=== PATIENT | female | born 1965 | race Caucasian/White ===

== ENCOUNTER 2016-12-02 10:15 | Outpatient (RCR) | payer OTHER ==
[~2016-12-02 10:15] MED LIST: /WARF5TA OR; ACET-654 PO; ACET500C OR; ADVI200T PO; ASPI325T PO; ATEN50TA2 OR; BAYE325T12 PO; DOCU10CA PO; ENOX40SY SC; IBUP80TA PO; LIPI20TA PO; Lioresal PO; MAGN250T OR; MAGN500T PO; MAGNESIUM OTC; MAGNESIUM OTC PO; MILKSUS PO; MULTIVIT; NICO14DI3 TD; NICO21DI4 TD; OXYB5TAB5 OR; POTA75TA OR; PROTPAK PO; SENO8.6T2 PO; TYLE650T30 PO; WARF1TAB OR
== END 2016-12-14 ==
LOC: M OT 10:15
PROVIDERS: ATTEND Psychiatry & Neurology Neurology
DX: Z51.89 Encounter for other specified aftercare (principal); G81.12 Spastic hemiplegia affecting left dominant side

== ENCOUNTER → 2017-11-29 | Outpatient (CLI) | payer MEDICARE, MEDICAID | LOC: M RAD 12:32 | DX: I67.1 Cerebral aneurysm, nonruptured (principal) | CPT/HCPCS: 70544 ==

== ENCOUNTER → 2017-12-08 | Outpatient (CLI) | payer MEDICARE, MEDICAID ==
[~2017-12-08] MED LIST changes: -/WARF5TA OR; -ACET-654 PO; -ACET500C OR; -ADVI200T PO; -ASPI325T PO; -ATEN50TA2 OR; -BAYE325T12 PO; -DOCU10CA PO; +E-Z-GAS II EFFERVESCENT PACKET (SODIUM BICARB./CITRIC ACID/SIMETHICONE) As Ordered; +E-Z-HD 98% w/w 340GM SUSP BTL As Ordered; +E-Z-PAQUE 96% w/w SUSP 176GM BTL As Ordered; -ENOX40SY SC; -IBUP80TA PO; -LIPI20TA PO; -Lioresal PO; -MAGN250T OR; -MAGN500T PO; -MAGNESIUM OTC; -MAGNESIUM OTC PO; -MILKSUS PO; -MULTIVIT; -NICO14DI3 TD; -NICO21DI4 TD; -OXYB5TAB5 OR; -POTA75TA OR; -PROTPAK PO; -SENO8.6T2 PO; -TYLE650T30 PO; +VARIBAR NECTAR 40% w/v 240ML SUSP BTL As Ordered; +VARIBAR PUDDING 40% w/v 230ML TUBE As Ordered; -WARF1TAB OR
== END ==
LOC: M RAD 10:11
DX: R13.10 Dysphagia, unspecified (principal)
CPT/HCPCS: 74230

== ENCOUNTER → 2018-01-10 | Outpatient (CLI) | payer MEDICARE, MEDICAID | LOC: M RAD 13:45 | DX: Z12.31 Encounter for screening mammogram for malignant neoplasm of breast (principal) | CPT/HCPCS: 77067 ==

== ENCOUNTER 2018-02-08 12:15 | Outpatient (RCR) | payer MEDICARE, MEDICAID | END 2018-02-11 | LOC: M PT 12:15 | DX: Z51.89 Encounter for other specified aftercare (principal); M25.512 Pain in left shoulder | CPT/HCPCS: 97140 ==

== ENCOUNTER 2018-02-14 13:54 | Outpatient (RCR) | payer MEDICARE, MEDICAID | END 2018-03-13 | LOC: M PT 13:54 | DX: Z51.89 Encounter for other specified aftercare (principal); M25.512 Pain in left shoulder | CPT/HCPCS: 97110 ==

== ENCOUNTER → 2019-01-29 | Outpatient (CLI) | payer MEDICARE, MEDICAID ==
[~2019-01-29] MED LIST changes: +/WARF5TA OR; +ACET1TAB55 PO; +ACET500C OR; +ADVI200T PO; +ASPI325T PO; +ATEN50TA2 OR; +BAYE325T12 PO; +DOCU10CA PO; -E-Z-GAS II EFFERVESCENT PACKET (SODIUM BICARB./CITRIC ACID/SIMETHICONE) As Ordered; -E-Z-HD 98% w/w 340GM SUSP BTL As Ordered; -E-Z-PAQUE 96% w/w SUSP 176GM BTL As Ordered; +ENOX40SY SC; +IBUP80TA PO; +LIPI20TA PO; +Lioresal PO; +MAGN250T OR; +MAGN500T PO; +MAGNESIUM OTC; +MAGNESIUM OTC PO; +MILK120011 PO; +MULTIVIT; +NICO14DI3 TD; +NICO21DI4 TD; +OXYB5TAB5 OR; +POTA75TA OR; +PROTPAK PO; +SENO8.6T5 PO; +TYLE650T30 PO; -VARIBAR NECTAR 40% w/v 240ML SUSP BTL As Ordered; -VARIBAR PUDDING 40% w/v 230ML TUBE As Ordered; +WARF1TAB OR
--- NOTE | 2019-01-29 15:10 | REP ---
MRA BRAIN WITHOUT CONTRAST: HISTORY: Left carotid aneurysm. 3D [id number] MR angiography was performed at the level of the [place]. COMPARISON: 11/29/2017 An aneurysm is present arising from the left internal carotid artery at the origin of the left posterior communicating artery. The aneurysm measures 4.5 x 6.2 mm and is unchanged in size compared to the previous study. The aneurysm projects lateral from the left internal carotid artery. There is no other aneurysm or arteriovenous malformation. There is loss of the normal hyperintense signal in the distal cervical and horizontal petrous segments of the right internal carotid artery. There is reconstitution of hyperintense signal in the vertical petrous segment of the right internal carotid artery. There is loss of the normal hyperintense signal in branches of the right middle cerebral artery secondary to a previous right temporoparietal lobe infarction. The remaining major intracranial vessels are patent. The left vertebral artery is dominant. IMPRESSION: 1. 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 2. Atherosclerotic disease, as described above. Electronically Signed by Cem Rodriguez MD 01/29/2019 03:13 P
== END ==
LOC: M RAD 13:15
PROVIDERS: ATTEND Neurological Surgery
DX: I67.1 Cerebral aneurysm, nonruptured (principal)

== ENCOUNTER → 2019-02-21 | Outpatient (REF) | payer MEDICARE, MEDICAID ==
[~2019-02-21] MED LIST changes: -/WARF5TA OR; +ASPI-1 PO; -ASPI325T PO; +COUM1TAB17 OR; -ENOX40SY SC; +LOVE1INJ SC
[2019-02-21 17:53] LABS: ALBUMIN 3.7 GM/DL (3.2-5.2); ALT/SGPT 26 U/L (12-78); BILIRUBIN,TOTAL 0.3 MG/DL (0.2-1.0); BLOOD UREA NITROGEN 7 MG/DL (7-18); CALCIUM LEVEL 9.7 MG/DL (8.5-10.1); CARBON DIOXIDE LEVEL 28 MEQ/L (21-32); CHLORIDE LEVEL 108 MEQ/L (98-107); CREATININE FOR GFR 0.78 MG/DL (0.55-1.30); GLOMERULAR FILTRATION RATE > 60.0 (>51); GLUCOSE, FASTING 132 MG/DL (70-100); SODIUM LEVEL 142 MEQ/L (136-145); TOTAL PROTEIN 7.3 GM/DL (6.4-8.2)
[2019-02-21 17:55] LABS: BASO % 0.4 % (0.0-1.0); EOS # 0.3 10^3/uL (0.0-0.50); EOS % 4.3 % (0.0-3.0); HEMATOCRIT 42.9 % (36.0-47.0); HEMOGLOBIN 13.3 g/dl (12.0-15.5); LYMPH # 3.7 10^3/uL (1.5-4.5); LYMPH % 50.3 % (24.0-44.0); MEAN CORPUSCULAR HEMOGLOBIN 27.4 pg (27.0-33.0); MEAN CORPUSCULAR VOLUME 88.3 fl (80.0-96.0); MONO # 0.5 10^3/uL (0.0-0.8); MONO % 7.3 % (0.0-5.0); NEUTROPHILS # 2.8 10^3/uL (1.8-7.7); NEUTROPHILS % 37.3 % (36.0-66.0); PLATELET COUNT, AUTOMATED 274 10^3/uL (150-450); RED BLOOD COUNT 4.86 10^6/uL (4.00-5.40); WHITE BLOOD COUNT 7.4 10^3/uL (4.0-10.0)
[2019-02-21 18:01] LABS: TOTAL 25(OH) VITAMIN D 40.2 NG/ML (30.0-100.0); VITAMIN B12 LEVEL 578 PG/ML
[2019-02-21 18:02] LABS: FOLATE > 24.0 NG/ML
== END ==
LOC: M LABNEURO 13:09
PROVIDERS: ATTEND Psychiatry & Neurology Neurology
DX: E53.8 Deficiency of other specified B group vitamins (principal); E55.9 Vitamin D deficiency, unspecified; G40.909 Epilepsy, unspecified, not intractable, without status epilepticus; I63.9 Cerebral infarction, unspecified

== ENCOUNTER → 2019-12-03 | Outpatient (REF) | payer MEDICARE, MEDICAID ==
[2019-12-03 13:43] LABS: BASO % 0.6 % (0.0-1.0); EOS # 0.2 10^3/uL (0.0-0.5); EOS % 2.3 % (0.0-3.0); HEMATOCRIT 44.3 % (36.0-47.0); HEMOGLOBIN 13.1 g/dl (12.0-15.5); LYMPH # 2.1 10^3/uL (1.5-5.0); LYMPH % 31.9 % (24.0-44.0); MEAN CORPUSCULAR HEMOGLOBIN 24.7 pg (27.0-33.0); MEAN CORPUSCULAR HGB CONC 29.6 g/dl (32.0-36.5); MEAN CORPUSCULAR VOLUME 83.6 fl (80.0-96.0); MONO # 0.5 10^3/uL (0.0-0.8); MONO % 8.3 % (0.0-5.0); NEUTROPHILS # 3.7 10^3/uL (1.5-8.5); NEUTROPHILS % 56.7 % (36.0-66.0); PLATELET COUNT, AUTOMATED 308 10^3/uL (150-450); WHITE BLOOD COUNT 6.5 10^3/uL (4.0-10.0)
[2019-12-03 13:54] LABS: ALBUMIN 3.9 GM/DL (3.2-5.2); ALT/SGPT 30 U/L (12-78); BILIRUBIN,TOTAL 0.4 MG/DL (0.2-1.0); BLOOD UREA NITROGEN 6 MG/DL (7-18); CALCIUM LEVEL 9.6 MG/DL (8.5-10.1); CARBON DIOXIDE LEVEL 29 MEQ/L (21-32); CHLORIDE LEVEL 103 MEQ/L (98-107); CREATININE FOR GFR 0.76 MG/DL (0.55-1.30); GLOMERULAR FILTRATION RATE > 60.0 (>51); GLUCOSE, FASTING 367 MG/DL (70-100); POTASSIUM SERUM 3.9 MEQ/L (3.5-5.1); SODIUM LEVEL 137 MEQ/L (136-145); TOTAL PROTEIN 7.7 GM/DL (6.4-8.2)
[2019-12-03 14:00] LABS: TOTAL 25(OH) VITAMIN D 18.2 NG/ML (30.0-100.0); VITAMIN B12 LEVEL 757 PG/ML
== END ==
LOC: M LABNEURO 12:52
PROVIDERS: ATTEND Psychiatry & Neurology Neurology
DX: G40.909 Epilepsy, unspecified, not intractable, without status epilepticus (principal)

== ENCOUNTER → 2020-01-15 | Outpatient (CLI) | payer MEDICARE, MEDICAID ==
--- NOTE | 2020-01-15 12:18 | REPVR ---
PROCEDURE INFORMATION: Exam: MR Angiogram Head Without Contrast, Arteries Exam date and time: 01/15/2020 11:06 AM Age: 54 years old Clinical indication: Condition or disease; Aneurysm, cerebral; Patient HX: F/u study to moniter known aneurysm; Additional info: Cerebral aneursym TECHNIQUE: Imaging protocol: MR angiogram head without contrast. Exam focused on the arteries. COMPARISON: MRA BRAIN W/O CONTRAST 01/29/2019 2:08 PM FINDINGS: Right internal carotid artery: There is stable occlusion of the right petrous and proximal cavernous segments of the internal carotid artery with minimal recanalization at the level of the distal cavernous and clinoid segments. Right anterior cerebral artery: Unremarkable. No occlusion or significant stenosis. No aneurysm. Right middle cerebral artery: There is mild stenosis of the right middle cerebral artery M1 segment. No aneurysm. Right posterior cerebral artery: Unremarkable. No occlusion or significant stenosis. No aneurysm. Right vertebral artery: Unremarkable. No occlusion or significant stenosis. No aneurysm. Left internal carotid artery: Unremarkable. Intracranial segment is patent with no significant stenosis. No aneurysm. Left anterior cerebral artery: Unremarkable. No occlusion or significant stenosis. No aneurysm. Left middle cerebral artery: Unremarkable. No occlusion or significant stenosis. No aneurysm. Left posterior cerebral artery: Unremarkable. No occlusion or significant stenosis. No aneurysm. Posterior communicating artery: There is a 4.3 x 6.0 cm left posterior communicating artery aneurysm. Left vertebral artery: Unremarkable. No occlusion or significant stenosis. No aneurysm. Basilar artery: Unremarkable. No occlusion or significant stenosis. No aneurysm. IMPRESSION: 1. Stable left posterior communicating artery aneurysm. 2. Stable occlusion of the right internal carotid artery. Electronically signed by: Britni Schaffer On 01/15/2020 12:17:47 PM
== END ==
LOC: M RAD 11:02
PROVIDERS: ATTEND Neurological Surgery
DX: I67.1 Cerebral aneurysm, nonruptured (principal)

== ENCOUNTER → 2020-02-27 | Outpatient (CLI) | payer MEDICARE, MEDICAID ==
--- NOTE | 2020-02-27 12:00 | REP ---
REASON: Status post CVA. I have no priors for comparison. Ultrasonographic evaluation of the right parotid artery shows complete lack of flow in any interrogated portion including both internal and external carotid arteries which were not definitely visualized. No velocities or waveforms could be obtained by interrogating the right carotid artery. LEFT CCA Systolic 156.0 cm/s CCA Diastolic 49.1 cm/s ICA Systolic 248.7 cm/s ICA Diastolic 74.0 cm/s ICA/CCA Ratio 1.59 Analysis of the spectral waveforms shows antegrade flow in the left vertebral artery, but poor visualization of flow in the right vertebral artery. In addition, there is evidence of left internal carotid arterial spectral broadening. IMPRESSION: 1. There are no priors for comparison. 2. Complete occlusion of the right carotid artery as described above. 3. According to the NASCET consensus criteria there is a greater than 70% flow significant stenosis in the left internal carotid artery. In addition, abnormal findings involving the right vertebral artery. 4. MRA of the carotid arterial system is recommended. Electronically Signed by Jerson Freed DO 02/27/2020 12:45 P
--- NOTE | 2020-02-27 12:08 | REP ---
REASON: Peripheral vascular disease. ON THE RIGHT: The ankle brachial index is 0.77. [employer] COMPUTING CONSULTANT 94.3 cm/s Biphasic Profunda 66.5 cm/s Monophasic SFA proximal 75.7 cm/s Biphasic SFA mid portion 65.3 cm/s Biphasic SFA distal 45.9 cm/s Biphasic Popliteal artery 45.1 cm/s Biphasic Anterior tibial artery proximally 42.6 cm/s Biphasic Tibioperoneal trunk 39.6 cm/s Monophasic Posterior tibia artery proximally 41.9 cm/s Monophasic Posterior tibial artery distally 30.8 cm/s Monophasic Anterior tibial artery distally 33.2 cm/s Biphasic Plaque was seen throughout all imaged arteries. Electronically Signed by Jerson Freed DO 02/27/2020 12:45 P
== END ==
LOC: M RAD 09:59
PROVIDERS: ATTEND Surgery Vascular Surgery
DX: I65.23 Occlusion and stenosis of bilateral carotid arteries (principal); Z95.820 Peripheral vascular angioplasty status with implants and grafts; I73.9 Peripheral vascular disease, unspecified

== ENCOUNTER → 2020-09-29 | Outpatient (CLI) | payer MEDICARE, MEDICAID ==
--- NOTE | 2020-09-29 15:58 | REP ---
INDICATION: Assess stenosis COMPARISON: None TECHNIQUE: Carotid ultrasonography was performed bilaterally FINDINGS: Right: CCA systolic: Occluded CCA diastolic: Occluded ICA systolic: Occluded ICA diastolic: Occluded ICA CCA ratio: NA LEFT: CCA systolic: 117 CENTIMETERS/SECONDS CCA diastolic: 25.8 CENTIMETERS/SECOND ICA systolic: 172.1 CENTIMETERS/SECOND ICA diastolic: 54.6 CENTIMETERS/SECONDS ICA CCA ratio: 1.47 Vertebral artery: Right: ABOVE AND BELOW BASELINE left: ANTEGRADE IMPRESSION: There is total occlusion of the interrogated right carotid artery. According to the SRU criteria there is 50-69% stenosis of the left internal carotid artery. There is evidence of a developing subclavian steal syndrome on the right. <Electronically signed by Jerson Freed > 09/29/20 [id number]
--- NOTE | 2020-09-29 16:26 | REP ---
INDICATION: PER VASC ANGIOPLASTY STATUS W/IMPLANTS . COMPARISON: 02/27/2020. TECHNIQUE: Real time jo scale and Duplex Doppler evaluation of the right lower extremity arterial vasculature using linear high frequency transducer. FINDINGS: The ankle to brachial index of the right lower extremity is 0.7. Duplex Doppler evaluation demonstrates diffuse monophasic waveforms throughout the right lower extremity arterial structures. Moderate diffuse plaquing is noted. No focal stenosis or occlusion is seen. PSV(cm/sec) Common femoral artery: 78 cm/s Profunda femoris artery: 63 cm/s Proximal superficial femoral artery: 82 cm/s Mid superficial femoral artery: 104 cm/s Distal superficial femoral artery: 90 cm/s Popliteal artery: 49 cm/s Proximal LEROY: 53 cm/s Tibioperoneal trunk: 72 cm/s Proximal BARGE LOADER: 44 cm/s Distal BARGE LOADER: 61 cm/s Distal LEROY: 40 cm/s IMPRESSION: No Duplex Doppler sonographic evidence of hemodynamically significant stenosis of the right lower extremity arterial system. Moderate diffuse plaquing. Diffuse monophasic waveforms. <Electronically signed by Gee Jo > 09/29/20 [id number]
== END ==
LOC: M RAD 14:25
PROVIDERS: ATTEND Surgery Vascular Surgery
DX: I65.23 Occlusion and stenosis of bilateral carotid arteries (principal); Z95.820 Peripheral vascular angioplasty status with implants and grafts; R09.89 Other specified symptoms and signs involving the circulatory and respiratory systems

== ENCOUNTER → 2021-01-19 | Outpatient (CLI) | payer MEDICARE, MEDICAID ==
--- NOTE | 2021-01-19 14:13 | REP ---
INDICATION: F/U CEREBRAL ANEURYSM. COMPARISON: Comparison MRI angiography of the brain January 15, 2020 and November 29, 2017.. TECHNIQUE: 3-D [id number] MR angiography of the brain is acquired in the usual fashion and maximal intensity projection images were generated in rotational format about the vertical and horizontal axes. In addition, source axial T1-weighted images are viewed in cine mode. FINDINGS: The right distal vertebral artery is smaller than the left. This is unchanged. Basilar artery is widely patent. Posterior cerebral and superior cerebellar vessels are unremarkable. Again noted is absence of flow signal in the right distal internal carotid artery consistent with a right ICA occlusion. There is reconstitution of the cavernous segment although this is small. Anterior communicator is patent. Posterior communicator appears patent on the right. On the left, there is a stable 6 mm issa aneurysm arising from the posterior communicating artery unchanged from multiple prior studies. Anterior cerebral and middle cerebral arteries remain intact and unremarkable. There is a large old area of encephalomalacia in the distribution of the right middle cerebral artery consistent with an old infarction. No evidence of new issa aneurysm or arteriovenous malformation. IMPRESSION: 6 mm left posterior communicating artery aneurysm is again seen unchanged. 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 <Electronically signed by Mau Butler > 01/19/21 [id number]
== END ==
LOC: M RAD 12:26
PROVIDERS: ATTEND Neurological Surgery
DX: I63.9 Cerebral infarction, unspecified (principal)

== ENCOUNTER → 2021-04-07 | Outpatient (CLI) | payer MEDICARE, MEDICAID ==
[2021-04-07 14:30] LABS: BASO % 0.6 % (0.0-1.0); EOS # 0.2 10^3/uL (0.0-0.5); EOS % 2.5 % (0.0-3.0); HEMATOCRIT 37.5 % (36.0-47.0); HEMOGLOBIN 10.7 g/dl (12.0-15.5); LYMPH # 3.2 10^3/uL (1.5-5.0); LYMPH % 47.2 % (24.0-44.0); MEAN CORPUSCULAR HEMOGLOBIN 21.1 pg (27.0-33.0); MEAN CORPUSCULAR HGB CONC 28.5 g/dl (32.0-36.5); MEAN CORPUSCULAR VOLUME 74.1 fl (80.0-96.0); MONO # 0.5 10^3/uL (0.0-0.8); MONO % 7.9 % (2.0-8.0); NEUTROPHILS # 2.8 10^3/uL (1.5-8.5); NEUTROPHILS % 41.5 % (36.0-66.0); PLATELET COUNT, AUTOMATED 338 10^3/uL (150-450); RED BLOOD COUNT 5.06 10^6/uL (4.00-5.40); WHITE BLOOD COUNT 6.8 10^3/uL (4.0-10.0)
[2021-04-07 15:15] LABS: ALBUMIN 3.3 GM/DL (3.2-5.2); ALT/SGPT 18 U/L (12-78); BILIRUBIN,TOTAL 0.3 MG/DL (0.2-1.0); BLOOD UREA NITROGEN 6 MG/DL (7-18); CALCIUM LEVEL 9.8 MG/DL (8.5-10.1); CARBON DIOXIDE LEVEL 29 MEQ/L (21-32); CHLORIDE LEVEL 106 MEQ/L (98-107); GLOMERULAR FILTRATION RATE > 60.0 (>51); GLUCOSE, FASTING 130 MG/DL (70-100); POTASSIUM SERUM 4.2 MEQ/L (3.5-5.1); SODIUM LEVEL 140 MEQ/L (136-145); TOTAL PROTEIN 6.9 GM/DL (6.4-8.2); VALPROIC ACID (DEPAKOTE) 79.1 UG/ML (50.0-100.0)
== END ==
LOC: M WUC 13:03
PROVIDERS: ATTEND Psychiatry & Neurology Neurology
DX: R56.9 Unspecified convulsions (principal)

== ENCOUNTER → 2021-10-19 | Outpatient (CLI) | payer MEDICARE, MEDICAID ==
--- NOTE | 2021-10-19 14:19 | REP ---
INDICATION: OCCLUSION + STENOSIS, ATHSCL [place] ARTERIES OF EX COMPARISON: 09/29/2020. TECHNIQUE: Real-time ultrasound evaluation and duplex Doppler interrogation of the extracranial carotid vasculature is performed. FINDINGS: Once again there is occlusion of the right common carotid, internal carotid and external carotid arteries as seen on prior study. There is significant plaque throughout the left common carotid artery and carotid bulb extending into the internal and external carotid arteries. There is stenosis of the proximal left internal carotid artery 50-69% based on velocity criteria. Waveforms in the right vertebral artery suggesting early subclavian steal. There is normal direction of flow in the left vertebral artery. RIGHT LEFT Peak systolic velocity ICA occluded 238.0 cm/s End diastolic velocity ICA occluded 73.9 cm/s Peak systolic velocity CCA occluded 104.5cm/s Peak systolic velocity ECA occluded 234.3 cm/s ICA/CCA ratio occluded 2.28 IMPRESSION: There are findings discussed in detail above which appear essentially stable compared to the prior exam. There is occlusion of the right common carotid, internal carotid and external carotid arteries. There is stenosis of the left ICA 50-69%. There are findings in the right vertebral artery suggesting early subclavian steal . <Electronically signed by Gee Jo > 10/19/21 [id number]
--- NOTE | 2021-10-19 14:23 | REP ---
INDICATION: OCCLUSION + STENOSIS, ATHSCL [place] ARTERIES OF EX. COMPARISON: 09/29/2020. TECHNIQUE: Real time jo scale and Duplex Doppler evaluation of the right lower extremity arterial vasculature using linear high frequency transducer. FINDINGS: The ankle to brachial index of the right lower extremity is 0.84.. Duplex doppler interrogation demonstrates normal triphasic wave patterns in the right common femoral artery with monophasic waveforms more distally. There are normal flow velocities from the common femoral artery through the popliteal and calf arteries. There is scattered moderate plaque present. There is approximately 20 mm Hg difference in arm pressures compatible with today's carotid ultrasound findings of early subclavian steal on the right. PSV(cm/sec) Common femoral artery: 96 Profunda femoris artery: 59 Proximal superficial femoral artery: 79 Mid superficial femoral artery: 63 Distal superficial femoral artery: 66 Popliteal artery: Is 33 Tibioperoneal trunk: 53 BRAND COMMUNICATIONS MANAGER (prox.): 50 BRAND COMMUNICATIONS MANAGER (distal): 38 Peroneal (prox.): 26 Peroneal (dist.): Not visualized LEROY (prox.): 41 LREOY (distal): 43 IMPRESSION: No change since prior study. Scattered moderate plaquing. No stenosis or occlusion. <Electronically signed by Gee Jo > 10/19/21 [id number]
== END ==
LOC: M RAD 12:27
PROVIDERS: ATTEND Surgery Vascular Surgery
DX: R94.30 Abnormal result of cardiovascular function study, unspecified (principal); I70.211 Atherosclerosis of native arteries of extremities with intermittent claudication, right leg; I65.21 Occlusion and stenosis of right carotid artery; I65.22 Occlusion and stenosis of left carotid artery

== ENCOUNTER → 2021-11-11 | Outpatient (CLI) | payer MEDICARE, MEDICAID ==
[~2021-11-11] MED LIST changes: +ISOVUE-300 61% 50ML VIAL As Ordered ONE; +LIDOCAINE 1% MDV 20ML VIAL As Ordered ONE; +PROHANCE 279.3MG/ML 5ML VIAL As Ordered ONE
--- NOTE | 2021-11-11 10:04 | REP ---
INDICATION: IMPINGEMENT SYNDROME OF LT SHOULDER,PRIMARY OSTEOA. COMPARISON: None. TECHNIQUE: Pre and post contrast 3T MRI of the left shoulder with MRI arthrogram was performed utilizing various sequences. The glenohumeral injection was performed by Alonzo RODRIGUEZ. FINDINGS: The pre injection portion of the examination shows minimal hypertrophic degenerative change of the acromioclavicular joint. The acromion process is type 2. There is mild patchy and linear T2 hyper signal seen in the supraspinatus tendon with some evidence of supraspinatus muscle atrophy. There is no musculotendinous retraction. No subscapularis, infraspinatus, or teres minor tendon abnormality is identified. The biceps tendon resides within the bicipital groove. There is no glenohumeral joint effusion. The marrow signal is within normal limits. The post injection portion of the examination shows hyper signal in the superior labrum anterior to posterior and hyper signal in the biceps labral complex. None of the injected fluid has migrated superior to the supraspinatus tendon. The glenohumeral ligaments appear to be intact. IMPRESSION: 1. There is a superior labral tear with some evidence of a SLAP component. 2. There is evidence of a slight biceps labral complex tear. 3. There is evidence of mild supraspinatus tendinitis/tendinosis with related findings as described above. 4. Other findings as described above. <Electronically signed by Jerson Freed > 11/11/21 1000
--- NOTE | 2021-11-11 18:56 | REP ---
INDICATION: IMPINGEMENT SYNDROME OF LT SHOULDER,PRIMARY OSTEOA COMPARISON: None. TECHNIQUE: The procedure was performed under the direct supervision of Dr. Jo. The benefits and risks including but not limited to pain, infection, bleeding and anaphylaxis were explained to the patient and informed consent was obtained. The left glenohumeral joint space was localized using fluoroscopic guidance. The skin was prepped and draped in a sterile fashion. 1% lidocaine was used as a local anesthetic. Using fluoroscopic guidance a 22 gauge spinal needle was inserted and advanced into the joint. 0.5 ml of Isovue-300 was injected to verify placement. 11 ml of a solution containing 20 ml of sterile saline and 0.15 ml of ProHance was injected into the joint. The needle was removed and the patient was taken to MRI for postprocedural imaging. The patient tolerated the procedure well and there were no immediate complications. Less than 6 seconds of fluoro time was utilized for this procedure. FINDINGS: None IMPRESSION: Fluoro guidance for left shoulder MRI arthrogram injection. <Electronically signed by Herman Lind > 11/11/21 [id number] <Electronically signed by Gee Jo > 11/11/21 [id number]
== END ==
LOC: M RADPRO 07:05
PROVIDERS: ATTEND Physician Assistant
DX: S43.432A Superior glenoid labrum lesion of left shoulder, initial encounter (principal); M67.812 Other specified disorders of synovium, left shoulder; M19.012 Primary osteoarthritis, left shoulder; M25.612 Stiffness of left shoulder, not elsewhere classified; M75.42 Impingement syndrome of left shoulder; Y92.89 Other specified places as the place of occurrence of the external cause; Y93.89 Activity, other specified; Y99.8 Other external cause status; X58.XXXA Exposure to other specified factors, initial encounter
CPT/HCPCS: 23350; 73223; 77002; A9576; Q9967

== ENCOUNTER → 2022-01-27 | Outpatient (CLI) | payer MEDICARE, MEDICAID ==
[~2022-01-27] MED LIST changes: -ISOVUE-300 61% 50ML VIAL As Ordered ONE; -LIDOCAINE 1% MDV 20ML VIAL As Ordered ONE; -PROHANCE 279.3MG/ML 5ML VIAL As Ordered ONE
== END ==
LOC: M PLAIMG 13:32
PROVIDERS: ATTEND Neurological Surgery
DX: I67.1 Cerebral aneurysm, nonruptured (principal)

== ENCOUNTER → 2022-06-10 | Outpatient (CLI) | payer MEDICARE, MEDICAID ==
[2022-06-10 13:57] LABS: BASO % 0.4 % (0.0-1.0); EOS # 0.1 10^3/uL (0.0-0.5); EOS % 1.8 % (0.0-3.0); HEMATOCRIT 48.5 % (36.0-47.0); HEMOGLOBIN 14.7 g/dl (12.0-15.5); LYMPH # 2.5 10^3/uL (1.5-5.0); LYMPH % 35.2 % (24.0-44.0); MEAN CORPUSCULAR HEMOGLOBIN 25.6 pg (27.0-33.0); MEAN CORPUSCULAR HGB CONC 30.3 g/dl (32.0-36.5); MEAN CORPUSCULAR VOLUME 84.3 fl (80.0-96.0); MONO # 0.6 10^3/uL (0.0-0.8); MONO % 8.6 % (2.0-8.0); NEUTROPHILS # 3.8 10^3/uL (1.5-8.5); NEUTROPHILS % 53.7 % (36.0-66.0); PLATELET COUNT, AUTOMATED 273 10^3/uL (150-450); RED BLOOD COUNT 5.75 10^6/uL (4.00-5.40); WHITE BLOOD COUNT 7.1 10^3/uL (4.0-10.0)
[2022-06-10 14:12] LABS: ALBUMIN 3.3 GM/DL (3.2-5.2); ALT/SGPT 16 U/L (12-78); BILIRUBIN,TOTAL 0.5 MG/DL (0.2-1.0); BLOOD UREA NITROGEN 8 MG/DL (7-18); CALCIUM LEVEL 10.4 MG/DL (8.5-10.1); CARBON DIOXIDE LEVEL 27 MEQ/L (21-32); CHLORIDE LEVEL 101 MEQ/L (98-107); CHOLESTEROL LEVEL 243 MG/DL (<200); CHOLESTEROL RISK RATIO 5.926 (<5); CREATININE FOR GFR 0.63 MG/DL (0.55-1.30); GLOMERULAR FILTRATION RATE > 60.0 (>51); GLUCOSE, FASTING 353 MG/DL (70-100); HDL CHOLESTEROL 41 MG/DL (>40); NON-HDL-C 202 MG/DL; POTASSIUM SERUM 3.9 MEQ/L (3.5-5.1); SODIUM LEVEL 136 MEQ/L (136-145); TOTAL PROTEIN 7.4 GM/DL (6.4-8.2); TRIGLYCERIDES LEVEL 535 MG/DL (<150); VALPROIC ACID (DEPAKOTE) 42.8 UG/ML (50.0-100.0)
[2022-06-10 14:53] LABS: TOTAL 25(OH) VITAMIN D 36.4 NG/ML (30.0-100.0)
[2022-06-10 14:54] LABS: FOLATE 16.6 NG/ML; VITAMIN B12 LEVEL 1094 PG/ML
== END ==
LOC: M PLALAB 11:18
PROVIDERS: ATTEND Psychiatry & Neurology Neurology
DX: E53.8 Deficiency of other specified B group vitamins (principal); E78.00 Pure hypercholesterolemia, unspecified

== ENCOUNTER 2022-10-23 13:33 | Emergency (ER) | payer MEDICARE, MEDICAID ==
[~2022-10-23] VITALS: Ht 157.5 cm; Wt 39.1 kg
[2022-10-23] MEDS ORDERED: BACL10TA2 (13:48)
[2022-10-23] MEDS ORDERED: ATOR80TA59 (13:48)
[2022-10-23] MEDS ORDERED: DIVA500T94 (13:48)
[2022-10-23] MEDS ORDERED: CLOP75TA2 (13:48)
[2022-10-23] MEDS ORDERED: OXCA300T14 (13:48)
[2022-10-23] MEDS ORDERED: ROPI0.5T3 (13:48)
[2022-10-23] MEDS ORDERED: GABA-282 (13:48)
[2022-10-23] MEDS ORDERED: PANT40TA29 (13:48)
[2022-10-23] MEDS ORDERED: MIRT-10 (13:48)
[2022-10-23] MEDS ORDERED: OXYB15TA14 (13:48)
[2022-10-23] MEDS ORDERED: ACETAMINOPHEN TAB 650MG DOSE (2X325MG) PO ONE (16:00)
[2022-10-23 17:41] LABS: BASO % 0.3 % (0.0-1.0); EOS % 0.3 % (0.0-3.0); HEMATOCRIT 47.3 % (36.0-47.0); HEMOGLOBIN 14.5 g/dl (12.0-15.5); LYMPH # 1.1 10^3/uL (1.5-5.0); LYMPH % 14.4 % (24.0-44.0); MEAN CORPUSCULAR HEMOGLOBIN 25.2 pg (27.0-33.0); MEAN CORPUSCULAR HGB CONC 30.7 g/dl (32.0-36.5); MEAN CORPUSCULAR VOLUME 82.1 fl (80.0-96.0); MONO % 12.7 % (2.0-8.0); NEUTROPHILS # 5.4 10^3/uL (1.5-8.5); PLATELET COUNT, AUTOMATED 203 10^3/uL (150-450); RED BLOOD COUNT 5.76 10^6/uL (4.00-5.40); WHITE BLOOD COUNT 7.5 10^3/uL (4.0-10.0)
[2022-10-23 18:00] VITALS: BP 115/59
[2022-10-23 18:53] LABS: BLOOD UREA NITROGEN 11 MG/DL (9-23); CALCIUM LEVEL 9.3 MG/DL (8.5-10.1); CARBON DIOXIDE LEVEL 27 MMOL/L (20-31); CHLORIDE LEVEL 102 MMOL/L (98-107); CREATININE FOR GFR 0.33 MG/DL (0.55-1.30); GLOMERULAR FILTRATION RATE > 60.0 (>51); GLUCOSE, FASTING 318 MG/DL (60-100); POTASSIUM SERUM 4.2 MMOL/L (3.5-5.1); SODIUM LEVEL 137 MMOL/L (136-145)
== END 2022-10-23 19:56 | disposition home or self-care (01) ==
LOC: M ED 13:33
DX: S42.215A Unspecified nondisplaced fracture of surgical neck of left humerus, initial encounter for closed fracture (principal); W19.XXXA Unspecified fall, initial encounter; Y92.099 Unspecified place in other non-institutional residence as the place of occurrence of the external cause; Y93.89 Activity, other specified; Z86.73 Personal history of transient ischemic attack (TIA), and cerebral infarction without residual deficits; Z86.718 Personal history of other venous thrombosis and embolism; F17.200 Nicotine dependence, unspecified, uncomplicated; Z79.82 Long term (current) use of aspirin; Z79.899 Other long term (current) drug therapy

== ENCOUNTER 2022-10-26 16:50 | Emergency (ER) | payer MEDICARE, MEDICAID ==
[~2022-10-26] VITALS: Ht 157.5 cm; Wt 39.1 kg
[~2022-10-26 16:50] MED LIST changes: +ATOR80TA59; +BACL10TA2; +CLOP75TA2; +DIVA500T94; +GABA-282; +MIRT-10; +OXCA300T14; +OXYB15TA14; +PANT40TA29; +ROPI0.5T3
[2022-10-26 18:47] LABS: BASO % 0.2 % (0.0-1.0); HEMATOCRIT 43.8 % (36.0-47.0); HEMOGLOBIN 13.2 g/dl (12.0-15.5); LYMPH # 1.2 10^3/uL (1.5-5.0); LYMPH % 14.6 % (24.0-44.0); MEAN CORPUSCULAR HEMOGLOBIN 24.7 pg (27.0-33.0); MEAN CORPUSCULAR HGB CONC 30.1 g/dl (32.0-36.5); MEAN CORPUSCULAR VOLUME 81.9 fl (80.0-96.0); MONO # 0.9 10^3/uL (0.0-0.8); MONO % 11.1 % (2.0-8.0); NEUTROPHILS # 6.1 10^3/uL (1.5-8.5); NEUTROPHILS % 73.7 % (36.0-66.0); PLATELET COUNT, AUTOMATED 203 10^3/uL (150-450); RED BLOOD COUNT 5.35 10^6/uL (4.00-5.40); WHITE BLOOD COUNT 8.2 10^3/uL (4.0-10.0)
[2022-10-26 19:03] LABS: RSV AMPLIFICATION NEGATIVE (NEGATIVE)
[2022-10-26 19:08] LABS: ETHYL ALCOHOL (ETHANOL) 0.003 % (0.000-0.010)
[2022-10-26 19:10] LABS: ALBUMIN 2.3 G/DL (3.2-5.2); ALKALINE PHOSPHATASE 262 U/L (46-116); ALT/SGPT 54 U/L (7.0-40); AST/SGOT 65 U/L (<34); BILIRUBIN,DIRECT 0.1 MG/DL (<0.4); BILIRUBIN,TOTAL 0.3 MG/DL (0.3-1.2); BLOOD UREA NITROGEN 15 MG/DL (9-23); CALCIUM LEVEL 9.7 MG/DL (8.5-10.1); CARBON DIOXIDE LEVEL 25 MMOL/L (20-31); CHLORIDE LEVEL 99 MMOL/L (98-107); CREATININE FOR GFR 0.33 MG/DL (0.55-1.30); GLOMERULAR FILTRATION RATE > 60.0 (>51); GLUCOSE, FASTING 337 MG/DL (60-100); POTASSIUM SERUM 4.4 MMOL/L (3.5-5.1); SODIUM LEVEL 135 MMOL/L (136-145); TOTAL PROTEIN 6.4 G/DL (5.7-8.2)
[2022-10-26 19:12] LABS: THYROID STIMULATING HORMONE 0.384 uIU/ML (0.55-4.78)
[2022-10-26] MEDS ORDERED: ACETAMINOPHEN TAB 650MG DOSE (2X325MG) PO ONE (19:35)
[2022-10-26 21:06] VITALS: BP 111/67
[2022-10-26 22:37] LABS: CK-MB VALUE MASS < 1.0 NG/ML (<3.6)
[2022-10-26 22:38] LABS: CPK CREATINE PHOSPHOKINASE 120 U/L (34-145); MB/CK RELATIVE INDEX 0.83 (< OR =4)
== END 2022-10-26 21:11 | disposition short-term general hospital (02) ==
LOC: M ED 16:50
DX: I60.12 Nontraumatic subarachnoid hemorrhage from left middle cerebral artery (principal); U07.1 COVID-19; R74.8 Abnormal levels of other serum enzymes; S42.212A Unspecified displaced fracture of surgical neck of left humerus, initial encounter for closed fracture; W19.XXXA Unspecified fall, initial encounter; Z86.718 Personal history of other venous thrombosis and embolism; Z86.73 Personal history of transient ischemic attack (TIA), and cerebral infarction without residual deficits; Z86.79 Personal history of other diseases of the circulatory system; F17.200 Nicotine dependence, unspecified, uncomplicated; M25.559 Pain in unspecified hip; Z79.82 Long term (current) use of aspirin

== ENCOUNTER → 2022-11-23 | Outpatient (CLI) | payer MEDICARE, MEDICAID | LOC: M RAD 11:06 | PROVIDERS: ATTEND Surgery Vascular Surgery | DX: I65.23 Occlusion and stenosis of bilateral carotid arteries (principal) ==

== ENCOUNTER → 2023-01-13 | Outpatient (CLI) | payer MEDICARE, MEDICAID | LOC: M RAD 10:29 | PROVIDERS: ATTEND Neurological Surgery | DX: I67.1 Cerebral aneurysm, nonruptured (principal) ==

== ENCOUNTER → 2023-03-09 | Outpatient (CLI) | payer MEDICARE, MEDICAID ==
[2023-03-09 15:46] LABS: BASO % 0.4 % (0.0-1.0); EOS # 0.2 10^3/uL (0.0-0.5); EOS % 1.5 % (0.0-3.0); HEMATOCRIT 46.2 % (36.0-47.0); HEMOGLOBIN 14.3 g/dl (12.0-15.5); LYMPH # 4.5 10^3/uL (1.5-5.0); LYMPH % 45.5 % (24.0-44.0); MEAN CORPUSCULAR HEMOGLOBIN 25.7 pg (27.0-33.0); MEAN CORPUSCULAR VOLUME 83.1 fl (80.0-96.0); MONO # 0.9 10^3/uL (0.0-0.8); MONO % 9.4 % (2.0-8.0); NEUTROPHILS # 4.3 10^3/uL (1.5-8.5); PLATELET COUNT, AUTOMATED 274 10^3/uL (150-450); RED BLOOD COUNT 5.56 10^6/uL (4.00-5.40)
[2023-03-09 15:51] LABS: ALBUMIN 3.4 G/DL (3.2-5.2); ALKALINE PHOSPHATASE 121 U/L (46-116); ALT/SGPT 16 U/L (7.0-40); AST/SGOT 15 U/L (<34); BILIRUBIN,TOTAL 0.3 MG/DL (0.3-1.2); BLOOD UREA NITROGEN 17 MG/DL (9-23); CALCIUM LEVEL 10.1 MG/DL (8.5-10.1); CARBON DIOXIDE LEVEL 28 MMOL/L (20-31); CHLORIDE LEVEL 104 MMOL/L (98-107); CHOLESTEROL LEVEL 190 MG/DL (<200); CHOLESTEROL RISK RATIO 2.69 (<5); CREATININE FOR GFR 0.51 MG/DL (0.55-1.30); GLOMERULAR FILTRATION RATE > 60.0 (>51); GLUCOSE, FASTING 95 MG/DL (60-100); HDL CHOLESTEROL 70.4 MG/DL (>40); LDL CHOLESTEROL 84.2 MG/DL (<100); NON-HDL-C 119.6 MG/DL; POTASSIUM SERUM 4.1 MMOL/L (3.5-5.1); SODIUM LEVEL 139 MMOL/L (136-145); TOTAL PROTEIN 7.6 G/DL (5.7-8.2); TRIGLYCERIDES LEVEL 177 MG/DL (<150)
[2023-03-09 16:11] LABS: CREATININE, URINE 81.9 MG/DL
[2023-03-09 16:12] LABS: MAU/CREAT RATIO 68.3 MCG/MG (0.0-30.0)
== END ==
LOC: M PLALAB 12:16
PROVIDERS: ATTEND Family Medicine
DX: I63.9 Cerebral infarction, unspecified (principal); E11.51 Type 2 diabetes mellitus with diabetic peripheral angiopathy without gangrene; I73.9 Peripheral vascular disease, unspecified

== ENCOUNTER → 2023-03-16 | Outpatient (REF) | payer MEDICARE, MEDICAID ==
[2023-03-16 15:56] LABS: APPEARANCE, URINE CLEAR (CLEAR); BACTERIA, URINE AUTO NEGATIVE (NEGATIVE); BILIRUBIN, URINE AUTO NEGATIVE (NEGATIVE); BLOOD, URINE BLOOD NEGATIVE (NEGATIVE); COLOR, URINE YELLOW (YELLOW); GLUCOSE, URINE (UA) AUTO NEGATIVE (NEGATIVE); KETONE, URINE AUTO TRACE mg/dL (NEGATIVE); LEUKOCYTE ESTERASE, URINE AUTO TRACE (NEGATIVE); NITRITE, URINE AUTO NEGATIVE (NEGATIVE); PROTEIN, URINE AUTO NEGATIVE (NEGATIVE); RBC, URINE AUTO 0 /HPF (0-3); SPECIFIC GRAVITY URINE AUTO 1.013 (1.002-1.035); SQUAMOUS EPITHELIAL CELL UR AU 2 /HPF (0-6); UROBILINOGEN, URINE AUTO 0.2 mg/dL (0.0-2.0); WBC, URINE AUTO 1 /HPF (0-3)
[2023-03-16 16:23] LABS: CREATININE, URINE 36.1 MG/DL
== END ==
LOC: M SFHCPLAZ 15:16
PROVIDERS: ATTEND Family Medicine
DX: R31.21 Asymptomatic microscopic hematuria (principal)

== ENCOUNTER → 2023-04-19 | Outpatient (REF) | payer MEDICARE, MEDICAID | LOC: M SFHCPLAZ 13:03 | PROVIDERS: ATTEND Nurse Practitioner Family | DX: R19.7 Diarrhea, unspecified (principal); K51.219 Ulcerative (chronic) proctitis with unspecified complications ==

== ENCOUNTER → 2023-05-06 | Outpatient (CLI) | payer MEDICARE, MEDICAID | LOC: M PLAIMG 10:06 | PROVIDERS: ATTEND Family Medicine | DX: R91.8 Other nonspecific abnormal finding of lung field (principal) ==

== ENCOUNTER → 2023-05-26 | Outpatient (CLI) | payer MEDICARE, MEDICAID ==
[~2023-05-26] MED LIST changes: -ROPI0.5T3; +ROPI0.5T33
[2023-05-26 14:22] LABS: HEMOGLOBIN A1c 5.4 % (4.0-6.0)
[2023-05-26 14:55] LABS: ALBUMIN 3.1 G/DL (3.2-5.2); ALKALINE PHOSPHATASE 125 U/L (46-116); ALT/SGPT 15 U/L (7.0-40); AST/SGOT 19 U/L (<34); BILIRUBIN,TOTAL 0.3 MG/DL (0.3-1.2); BLOOD UREA NITROGEN 12 MG/DL (9-23); CARBON DIOXIDE LEVEL 28 MMOL/L (20-31); CHLORIDE LEVEL 107 MMOL/L (98-107); CREATININE FOR GFR 0.51 MG/DL (0.55-1.30); GLOMERULAR FILTRATION RATE > 60.0 (>51); GLUCOSE, FASTING 100 MG/DL (60-100); POTASSIUM SERUM 4.3 MMOL/L (3.5-5.1); SODIUM LEVEL 141 MMOL/L (136-145); TOTAL PROTEIN 6.7 G/DL (5.7-8.2)
== END ==
LOC: M PLALAB 10:09
PROVIDERS: ATTEND Family Medicine
DX: E11.29 Type 2 diabetes mellitus with other diabetic kidney complication (principal)

== ENCOUNTER → 2023-06-14 | Outpatient (CLI) | payer MEDICARE, MEDICAID | LOC: M PLALAB 16:26 | PROVIDERS: ATTEND Internal Medicine Hematology | DX: R91.8 Other nonspecific abnormal finding of lung field (principal); Z87.891 Personal history of nicotine dependence ==

== ENCOUNTER → 2023-06-14 | Outpatient (CLI) | payer MEDICARE, MEDICAID | LOC: M RAD 08:59 | PROVIDERS: ATTEND Family Medicine | DX: J43.2 Centrilobular emphysema (principal); I25.84 Coronary atherosclerosis due to calcified coronary lesion ==

== ENCOUNTER → 2023-08-01 | Outpatient (CLI) | payer MEDICARE, MEDICAID | LOC: M RAD 12:21 | PROVIDERS: ATTEND Physician Assistant | DX: I70.90 Unspecified atherosclerosis (principal); I65.23 Occlusion and stenosis of bilateral carotid arteries; I87.2 Venous insufficiency (chronic) (peripheral) ==

== ENCOUNTER → 2023-08-01 | Outpatient (CLI) | payer MEDICARE, MEDICAID | LOC: M RAD 12:30 | PROVIDERS: ATTEND Surgery Vascular Surgery | DX: I87.2 Venous insufficiency (chronic) (peripheral) (principal) ==

== ENCOUNTER → 2023-10-17 | Outpatient (CLI) | payer MEDICARE, MEDICAID | LOC: M RAD 08:34 | PROVIDERS: ATTEND Family Medicine | DX: I71.40 Abdominal aortic aneurysm, without rupture, unspecified (principal) ==

== ENCOUNTER → 2024-01-04 | Outpatient (CLI) | payer MEDICARE, MEDICAID ==
[2024-01-04 14:16] LABS: CHOLESTEROL RISK RATIO 2.55 (<5); HDL CHOLESTEROL 59.6 MG/DL (>40); LDL CHOLESTEROL 60.2 MG/DL (<100); NON-HDL-C 92.4 MG/DL
== END ==
LOC: M PLALAB 10:43
PROVIDERS: ATTEND Family Medicine
DX: Z12.11 Encounter for screening for malignant neoplasm of colon (principal); E78.00 Pure hypercholesterolemia, unspecified

== ENCOUNTER → 2024-04-04 | Outpatient (CLI) | payer MEDICARE, MEDICAID ==
[2024-04-04 14:45] LABS: HEMATOCRIT 43.4 % (36.0-47.0); HEMOGLOBIN 13.4 g/dl (12.0-15.5); MEAN CORPUSCULAR HEMOGLOBIN 24.4 pg (27.0-33.0); MEAN CORPUSCULAR HGB CONC 30.9 g/dl (32.0-36.5); MEAN CORPUSCULAR VOLUME 79.1 fl (80.0-96.0); PLATELET COUNT, AUTOMATED 283 10^3/uL (150-450); RED BLOOD COUNT 5.49 10^6/uL (4.00-5.40); WHITE BLOOD COUNT 10.2 10^3/uL (4.0-10.0)
[2024-04-04 17:35] LABS: IRON (FE) 16 UG/DL (50-170); PERCENT SATURATION 4.3 % (13.2-45.0); TOTAL IRON BINDING CAPACITY 374 UG/DL (250-425)
[2024-04-04 17:36] LABS: ALBUMIN 2.7 G/DL (3.2-5.2); ALKALINE PHOSPHATASE 136 U/L (46-116); ALT/SGPT 21 U/L (7.0-40); AST/SGOT 18 U/L (<34); BILIRUBIN,TOTAL 0.3 MG/DL (0.3-1.2); BLOOD UREA NITROGEN 10 MG/DL (9-23); CALCIUM LEVEL 9.5 MG/DL (8.5-10.1); CARBON DIOXIDE LEVEL 28 MMOL/L (20-31); CHLORIDE LEVEL 107 MMOL/L (98-107); CREATININE FOR GFR 0.34 MG/DL (0.55-1.30); GLOMERULAR FILTRATION RATE > 60.0 (>51); GLUCOSE, FASTING 81 MG/DL (60-100); POTASSIUM SERUM 4.3 MMOL/L (3.5-5.1); SODIUM LEVEL 142 MMOL/L (136-145); TOTAL PROTEIN 6.2 G/DL (5.7-8.2)
[2024-04-04 17:43] LABS: THYROID STIMULATING HORMONE 1.018 uIU/ML (0.55-4.78)
[2024-04-04 17:45] LABS: VITAMIN B12 LEVEL 746 PG/ML (211-911)
[2024-04-04 17:46] LABS: TOTAL 25(OH) VITAMIN D 31.3 NG/ML (20.0-100.0)
== END ==
LOC: M PLALAB 10:33
PROVIDERS: ATTEND Family Medicine
DX: L65.8 Other specified nonscarring hair loss (principal)

== ENCOUNTER → 2024-06-05 | Outpatient (CLI) | payer MEDICARE ==
[2024-06-05 18:31] LABS: HEMATOCRIT 48.5 % (36.0-47.0); HEMOGLOBIN 15.2 g/dl (12.0-15.5); MEAN CORPUSCULAR HEMOGLOBIN 24.7 pg (27.0-33.0); MEAN CORPUSCULAR HGB CONC 31.3 g/dl (32.0-36.5); MEAN CORPUSCULAR VOLUME 78.7 fl (80.0-96.0); PLATELET COUNT, AUTOMATED 360 10^3/uL (150-450); RED BLOOD COUNT 6.16 10^6/uL (4.00-5.40)
[2024-06-05 19:06] LABS: LIPASE 20 U/L (12-53)
[2024-06-05 19:08] LABS: ALBUMIN 3.2 G/DL (3.2-5.2); ALKALINE PHOSPHATASE 172 U/L (46-116); ALT/SGPT 13 U/L (7.0-40); AST/SGOT 12 U/L (<34); BILIRUBIN,TOTAL 0.6 MG/DL (0.3-1.2); BLOOD UREA NITROGEN 18 MG/DL (9-23); CALCIUM LEVEL 10.3 MG/DL (8.5-10.1); CARBON DIOXIDE LEVEL 26 MMOL/L (20-31); CHLORIDE LEVEL 101 MMOL/L (98-107); CREATININE FOR GFR 0.48 MG/DL (0.55-1.30); GLOMERULAR FILTRATION RATE > 60.0 (>51); GLUCOSE, FASTING 125 MG/DL (60-100); SODIUM LEVEL 139 MMOL/L (136-145); TOTAL PROTEIN 7.1 G/DL (5.7-8.2)
[2024-06-07 10:36] LABS: FERRITIN 15.6 NG/ML (7.3-270.7)
== END ==
LOC: M PLALAB 15:42
PROVIDERS: ATTEND Family Medicine
DX: R63.4 Abnormal weight loss (principal); E61.1 Iron deficiency; R00.0 Tachycardia, unspecified; R10.10 Upper abdominal pain, unspecified

== ENCOUNTER → 2024-06-08 | Outpatient (CLI) | payer MEDICARE ==
[~2024-06-08] MED LIST changes: +ISOVUE-370 76% 100ML VIAL As Ordered ONE
== END ==
LOC: M RAD 07:16
PROVIDERS: ATTEND Family Medicine
DX: R10.9 Unspecified abdominal pain (principal); R63.4 Abnormal weight loss
CPT/HCPCS: 71250; 74174; Q9967

== ENCOUNTER → 2024-06-26 | Outpatient (CLI) | payer MEDICARE, MEDICAID ==
[~2024-06-26] MED LIST changes: -ISOVUE-370 76% 100ML VIAL As Ordered ONE
== END ==
LOC: M RAD 14:24
PROVIDERS: ATTEND Physician Assistant
DX: I65.23 Occlusion and stenosis of bilateral carotid arteries (principal)

== ENCOUNTER → 2024-08-06 | Outpatient (REF) | payer MEDICARE, MEDICAID ==
[2024-08-06 17:34] LABS: ALBUMIN 1.5 G/DL (3.2-5.2); ALKALINE PHOSPHATASE 238 U/L (46-116); ALT/SGPT 57 U/L (7.0-40); AST/SGOT 62 U/L (<34); BILIRUBIN,TOTAL 1.1 MG/DL (0.3-1.2); BLOOD UREA NITROGEN 19 MG/DL (9-23); CALCIUM LEVEL 8.5 MG/DL (8.5-10.1); CARBON DIOXIDE LEVEL 29 MMOL/L (20-31); CHLORIDE LEVEL 103 MMOL/L (98-107); CHOLESTEROL LEVEL 108 MG/DL (<200); CHOLESTEROL RISK RATIO 5.42 (<5); CREATININE FOR GFR 0.23 MG/DL (0.55-1.30); GLOMERULAR FILTRATION RATE > 60.0 (>51); GLUCOSE, FASTING 90 MG/DL (60-100); HDL CHOLESTEROL 19.9 MG/DL (>40); LDL CHOLESTEROL 70.7 MG/DL (<100); MAGNESIUM LEVEL 1.8 MG/DL (1.8-2.4); NON-HDL-C 88.1 MG/DL; PHOSPHORUS LEVEL 3.9 MG/DL (2.5-4.9); POTASSIUM SERUM 4.6 MMOL/L (3.5-5.1); SODIUM LEVEL 134 MMOL/L (136-145); TOTAL PROTEIN 6.9 G/DL (5.7-8.2); TRIGLYCERIDES LEVEL 87 MG/DL (<150)
== END ==
LOC: M LAB REF 16:04
PROVIDERS: ATTEND Psychiatry & Neurology Neurology
DX: K55.031 Focal (segmental) acute (reversible) ischemia of large intestine (principal); E78.00 Pure hypercholesterolemia, unspecified

== ENCOUNTER → 2024-08-13 | Outpatient (REF) | payer MEDICARE, MEDICAID ==
[2024-08-13 14:52] LABS: BASO % 0.5 % (0.0-1.0); EOS # 0.1 10^3/uL (0.0-0.5); EOS % 1.8 % (0.0-3.0); HEMATOCRIT 35.3 % (36.0-47.0); HEMOGLOBIN 11.3 g/dl (12.0-15.5); LYMPH # 4.7 10^3/uL (1.5-5.0); LYMPH % 59.3 % (24.0-44.0); MEAN CORPUSCULAR HEMOGLOBIN 30.6 pg (27.0-33.0); MEAN CORPUSCULAR VOLUME 95.7 fl (80.0-96.0); MONO # 0.8 10^3/uL (0.0-0.8); MONO % 9.7 % (2.0-8.0); NEUTROPHILS # 2.3 10^3/uL (1.5-8.5); NEUTROPHILS % 28.4 % (36.0-66.0); PLATELET COUNT, AUTOMATED 263 10^3/uL (150-450); RED BLOOD COUNT 3.69 10^6/uL (4.00-5.40); WHITE BLOOD COUNT 7.9 10^3/uL (4.0-10.0)
[2024-08-13 15:17] LABS: ALBUMIN 1.9 G/DL (3.2-5.2); ALKALINE PHOSPHATASE 313 U/L (46-116); ALT/SGPT 62 U/L (7.0-40); AST/SGOT 83 U/L (<34); BILIRUBIN,TOTAL 1.1 MG/DL (0.3-1.2); BLOOD UREA NITROGEN 17 MG/DL (9-23); CALCIUM LEVEL 8.8 MG/DL (8.5-10.1); CARBON DIOXIDE LEVEL 27 MMOL/L (20-31); CHLORIDE LEVEL 103 MMOL/L (98-107); CREATININE FOR GFR 0.24 MG/DL (0.55-1.30); GLOMERULAR FILTRATION RATE > 60.0 (>51); GLUCOSE, FASTING 108 MG/DL (60-100); MAGNESIUM LEVEL 1.9 MG/DL (1.8-2.4); PHOSPHORUS LEVEL 3.5 MG/DL (2.5-4.9); POTASSIUM SERUM 4.6 MMOL/L (3.5-5.1); SODIUM LEVEL 134 MMOL/L (136-145); TOTAL PROTEIN 7.5 G/DL (5.7-8.2)
[2024-08-13 15:21] LABS: HEMOGLOBIN A1c 5.8 % (4.0-6.0)
== END ==
LOC: M LAB REF 14:11
PROVIDERS: ATTEND Surgery Vascular Surgery
DX: K55.031 Focal (segmental) acute (reversible) ischemia of large intestine (principal)

== ENCOUNTER → 2024-08-20 | Outpatient (REF) | payer MEDICARE, MEDICAID ==
[~2024-08-20] MED LIST changes: +GABA-1172; -GABA-282
[2024-08-20 12:50] LABS: ALKALINE PHOSPHATASE 786 U/L (46-116); ALT/SGPT 124 U/L (7.0-40); AST/SGOT 130 U/L (<34); BLOOD UREA NITROGEN 17 MG/DL (9-23); CALCIUM LEVEL 8.5 MG/DL (8.5-10.1); CARBON DIOXIDE LEVEL 25 MMOL/L (20-31); CHLORIDE LEVEL 102 MMOL/L (98-107); CREATININE FOR GFR 0.22 MG/DL (0.55-1.30); GLOMERULAR FILTRATION RATE > 60.0 (>51); GLUCOSE, FASTING 102 MG/DL (60-100); MAGNESIUM LEVEL 1.9 MG/DL (1.8-2.4); PHOSPHORUS LEVEL 3.4 MG/DL (2.5-4.9); POTASSIUM SERUM 4.6 MMOL/L (3.5-5.1); SODIUM LEVEL 133 MMOL/L (136-145); TOTAL PROTEIN 7.4 G/DL (5.7-8.2)
== END ==
LOC: M LAB REF 10:46
PROVIDERS: ATTEND Surgery Vascular Surgery
DX: Z48.815 Encounter for surgical aftercare following surgery on the digestive system (principal)

== ENCOUNTER → 2024-08-27 | Outpatient (REF) | payer MEDICARE, MEDICAID ==
[2024-08-27 15:02] LABS: ALBUMIN 1.9 G/DL (3.2-5.2); ALKALINE PHOSPHATASE 912 U/L (46-116); ALT/SGPT 66 U/L (7.0-40); AST/SGOT 72 U/L (<34); BILIRUBIN,TOTAL 0.8 MG/DL (0.3-1.2); BLOOD UREA NITROGEN 16 MG/DL (9-23); CALCIUM LEVEL 8.6 MG/DL (8.5-10.1); CARBON DIOXIDE LEVEL 26 MMOL/L (20-31); CHLORIDE LEVEL 105 MMOL/L (98-107); CREATININE FOR GFR 0.22 MG/DL (0.55-1.30); GLOMERULAR FILTRATION RATE > 60.0 (>51); GLUCOSE, FASTING 96 MG/DL (60-100); PHOSPHORUS LEVEL 3.3 MG/DL (2.5-4.9); POTASSIUM SERUM 4.8 MMOL/L (3.5-5.1); SODIUM LEVEL 133 MMOL/L (136-145); TOTAL PROTEIN 6.8 G/DL (5.7-8.2)
== END ==
LOC: M LAB REF 12:44
PROVIDERS: ATTEND Surgery Vascular Surgery
DX: Z48.815 Encounter for surgical aftercare following surgery on the digestive system (principal)

== ENCOUNTER → 2024-09-10 | Outpatient (REF) | payer MEDICARE, MEDICAID ==
[2024-09-10 16:49] LABS: ALBUMIN 1.9 G/DL (3.2-5.2); ALKALINE PHOSPHATASE 396 U/L (35-104); ALT/SGPT 17 U/L (7.0-40); AST/SGOT 19 U/L (<34); BILIRUBIN,TOTAL 0.4 MG/DL (0.3-1.2); BLOOD UREA NITROGEN 17 MG/DL (9-23); CALCIUM LEVEL 8.8 MG/DL (8.5-10.1); CARBON DIOXIDE LEVEL 26 MMOL/L (20-31); CHLORIDE LEVEL 106 MMOL/L (98-107); CHOLESTEROL LEVEL 164 MG/DL (<200); CHOLESTEROL RISK RATIO 3.69 (<5); CREATININE FOR GFR 0.24 MG/DL (0.55-1.30); GLOMERULAR FILTRATION RATE > 60.0 (>51); GLUCOSE, FASTING 136 MG/DL (60-100); HDL CHOLESTEROL 44.4 MG/DL (>40); LDL CHOLESTEROL 109.2 MG/DL (<100); MAGNESIUM LEVEL 1.8 MG/DL (1.8-2.4); NON-HDL-C 119.6 MG/DL; PHOSPHORUS LEVEL 3.6 MG/DL (2.5-4.9); SODIUM LEVEL 135 MMOL/L (136-145); TOTAL PROTEIN 6.5 G/DL (5.7-8.2); TRIGLYCERIDES LEVEL 52 MG/DL (<150)
== END ==
LOC: M LAB REF 15:35
PROVIDERS: ATTEND Surgery Vascular Surgery
DX: Z48.815 Encounter for surgical aftercare following surgery on the digestive system (principal); E78.00 Pure hypercholesterolemia, unspecified

== ENCOUNTER → 2024-09-17 | Outpatient (REF) | payer MEDICARE, MEDICAID ==
[2024-09-17 14:20] LABS: ALBUMIN 2.1 G/DL (3.2-5.2); ALKALINE PHOSPHATASE 348 U/L (35-104); ALT/SGPT 10 U/L (7.0-40); AST/SGOT 19 U/L (<34); BILIRUBIN,TOTAL 0.3 MG/DL (0.3-1.2); BLOOD UREA NITROGEN 20 MG/DL (9-23); CALCIUM LEVEL 8.9 MG/DL (8.5-10.1); CARBON DIOXIDE LEVEL 24 MMOL/L (20-31); CHLORIDE LEVEL 106 MMOL/L (98-107); CHOLESTEROL LEVEL 181 MG/DL (<200); CHOLESTEROL RISK RATIO 3.69 (<5); CREATININE FOR GFR 0.29 MG/DL (0.55-1.30); GLOMERULAR FILTRATION RATE > 60.0 (>51); GLUCOSE, FASTING 95 MG/DL (60-100); PHOSPHORUS LEVEL 3.6 MG/DL (2.5-4.9); POTASSIUM SERUM 4.9 MMOL/L (3.5-5.1); SODIUM LEVEL 137 MMOL/L (136-145); TOTAL PROTEIN 6.9 G/DL (5.7-8.2); TRIGLYCERIDES LEVEL 65 MG/DL (<150)
== END ==
LOC: M LAB REF 12:54
PROVIDERS: ATTEND Surgery Vascular Surgery
DX: Z48.815 Encounter for surgical aftercare following surgery on the digestive system (principal); E78.00 Pure hypercholesterolemia, unspecified

== ENCOUNTER → 2024-10-01 | Outpatient (REF) | payer MEDICARE, MEDICAID ==
[2024-10-01 15:42] LABS: ALBUMIN 2.3 G/DL (3.2-5.2); ALKALINE PHOSPHATASE 355 U/L (35-104); ALT/SGPT 14 U/L (7.0-40); AST/SGOT 26 U/L (<34); BILIRUBIN,TOTAL 0.3 MG/DL (0.3-1.2); BLOOD UREA NITROGEN 17 MG/DL (9-23); CALCIUM LEVEL 9.2 MG/DL (8.5-10.1); CARBON DIOXIDE LEVEL 23 MMOL/L (20-31); CHLORIDE LEVEL 106 MMOL/L (98-107); CHOLESTEROL LEVEL 145 MG/DL (<200); CHOLESTEROL RISK RATIO 3.17 (<5); CREATININE FOR GFR 0.29 MG/DL (0.55-1.30); GLOMERULAR FILTRATION RATE > 60.0 (>51); GLUCOSE, FASTING 97 MG/DL (60-100); HDL CHOLESTEROL 45.7 MG/DL (>40); LDL CHOLESTEROL 90.3 MG/DL (<100); MAGNESIUM LEVEL 1.9 MG/DL (1.8-2.4); NON-HDL-C 99.3 MG/DL; PHOSPHORUS LEVEL 3.5 MG/DL (2.5-4.9); POTASSIUM SERUM 5.2 MMOL/L (3.5-5.1); SODIUM LEVEL 135 MMOL/L (136-145); TOTAL PROTEIN 7.1 G/DL (5.7-8.2); TRIGLYCERIDES LEVEL 45 MG/DL (<150)
== END ==
LOC: M LAB REF 14:38
PROVIDERS: ATTEND Family Medicine
DX: Z48.815 Encounter for surgical aftercare following surgery on the digestive system (principal); E78.00 Pure hypercholesterolemia, unspecified

== ENCOUNTER → 2024-10-08 | Outpatient (REF) | payer MEDICARE, MEDICAID ==
[2024-10-08 19:35] LABS: ALBUMIN 2.3 G/DL (3.2-5.2); ALKALINE PHOSPHATASE 379 U/L (35-104); ALT/SGPT 22 U/L (7.0-40); AST/SGOT 26 U/L (<34); BILIRUBIN,TOTAL 0.3 MG/DL (0.3-1.2); BLOOD UREA NITROGEN 17 MG/DL (9-23); CALCIUM LEVEL 9.1 MG/DL (8.5-10.1); CARBON DIOXIDE LEVEL 24 MMOL/L (20-31); CHLORIDE LEVEL 104 MMOL/L (98-107); CREATININE FOR GFR 0.36 MG/DL (0.55-1.30); GLOMERULAR FILTRATION RATE > 60.0 (>51); GLUCOSE, FASTING 90 MG/DL (60-100); MAGNESIUM LEVEL 1.8 MG/DL (1.8-2.4); PHOSPHORUS LEVEL 3.8 MG/DL (2.5-4.9); POTASSIUM SERUM 4.1 MMOL/L (3.5-5.1); SODIUM LEVEL 135 MMOL/L (136-145); TOTAL PROTEIN 7.3 G/DL (5.7-8.2)
== END ==
LOC: M LAB REF 16:05
PROVIDERS: ATTEND Physician Assistant
DX: Z48.815 Encounter for surgical aftercare following surgery on the digestive system (principal)

== ENCOUNTER → 2024-10-16 | Outpatient (REF) | payer MEDICARE, MEDICAID ==
[2024-10-16 16:09] LABS: ALBUMIN 2.4 G/DL (3.2-5.2); ALKALINE PHOSPHATASE 376 U/L (35-104); ALT/SGPT 13 U/L (7.0-40); AST/SGOT 18 U/L (<34); BILIRUBIN,TOTAL 0.2 MG/DL (0.3-1.2); BLOOD UREA NITROGEN 17 MG/DL (9-23); CALCIUM LEVEL 9.2 MG/DL (8.5-10.1); CARBON DIOXIDE LEVEL 26 MMOL/L (20-31); CHLORIDE LEVEL 104 MMOL/L (98-107); CHOLESTEROL LEVEL 144 MG/DL (<200); CHOLESTEROL RISK RATIO 2.68 (<5); CREATININE FOR GFR 0.32 MG/DL (0.55-1.30); GLOMERULAR FILTRATION RATE > 60.0 (>51); GLUCOSE, FASTING 118 MG/DL (60-100); HDL CHOLESTEROL 53.6 MG/DL (>40); LDL CHOLESTEROL 79.2 MG/DL (<100); NON-HDL-C 90.4 MG/DL; PHOSPHORUS LEVEL 3.9 MG/DL (2.5-4.9); POTASSIUM SERUM 4.3 MMOL/L (3.5-5.1); SODIUM LEVEL 135 MMOL/L (136-145); TOTAL PROTEIN 7.1 G/DL (5.7-8.2); TRIGLYCERIDES LEVEL 56 MG/DL (<150)
== END ==
LOC: M LAB REF 14:30
PROVIDERS: ATTEND Surgery Vascular Surgery
DX: Z48.815 Encounter for surgical aftercare following surgery on the digestive system (principal); E78.00 Pure hypercholesterolemia, unspecified

== ENCOUNTER → 2024-10-23 | Outpatient (REF) | payer MEDICARE, MEDICAID ==
[2024-10-23 13:01] LABS: ALBUMIN 2.5 G/DL (3.2-5.2); ALKALINE PHOSPHATASE 373 U/L (35-104); ALT/SGPT 15 U/L (7.0-40); AST/SGOT 28 U/L (<34); BILIRUBIN,TOTAL 0.2 MG/DL (0.3-1.2); BLOOD UREA NITROGEN 12 MG/DL (9-23); CALCIUM LEVEL 9.5 MG/DL (8.5-10.1); CARBON DIOXIDE LEVEL 26 MMOL/L (20-31); CHLORIDE LEVEL 105 MMOL/L (98-107); CREATININE FOR GFR 0.36 MG/DL (0.55-1.30); GLOMERULAR FILTRATION RATE > 60.0 (>51); GLUCOSE, FASTING 110 MG/DL (60-100); PHOSPHORUS LEVEL 3.6 MG/DL (2.5-4.9); POTASSIUM SERUM 4.7 MMOL/L (3.5-5.1); SODIUM LEVEL 139 MMOL/L (136-145)
== END ==
LOC: M LAB REF 11:56
PROVIDERS: ATTEND Surgery Vascular Surgery
DX: Z48.815 Encounter for surgical aftercare following surgery on the digestive system (principal)

== ENCOUNTER 2024-10-31 19:23 | Emergency (ER) | payer MEDICARE, MEDICAID ==
[~2024-10-31] VITALS: Ht 157.5 cm; Wt 42.4 kg
[2024-10-31 19:26] VITALS: TEMP 97.5
[2024-10-31 21:01] LABS: BLOOD UREA NITROGEN 11 MG/DL (9-23); CALCIUM LEVEL 9.5 MG/DL (8.5-10.1); CARBON DIOXIDE LEVEL 27 MMOL/L (20-31); CHLORIDE LEVEL 105 MMOL/L (98-107); CREATININE FOR GFR 0.49 MG/DL (0.55-1.30); GLOMERULAR FILTRATION RATE > 60.0 (>51); GLUCOSE, FASTING 108 MG/DL (60-100); POTASSIUM SERUM 4.2 MMOL/L (3.5-5.1); SODIUM LEVEL 139 MMOL/L (136-145)
[2024-10-31 22:00] VITALS: BP 115/64
[2024-10-31 22:08] VITALS: O2SAT 96
== END 2024-10-31 22:39 | disposition home or self-care (01) ==
LOC: M ED 19:23
DX: R79.89 Other specified abnormal findings of blood chemistry (principal); R00.0 Tachycardia, unspecified; E11.9 Type 2 diabetes mellitus without complications; E78.5 Hyperlipidemia, unspecified; J44.9 Chronic obstructive pulmonary disease, unspecified; F17.210 Nicotine dependence, cigarettes, uncomplicated; Z79.1 Long term (current) use of non-steroidal anti-inflammatories (NSAID); Z79.2 Long term (current) use of antibiotics; Z79.899 Other long term (current) drug therapy; Z48.815 Encounter for surgical aftercare following surgery on the digestive system

== ENCOUNTER → 2024-10-31 | Outpatient (REF) | payer MEDICARE, MEDICAID ==
[2024-10-31 18:16] LABS: ALBUMIN 2.5 G/DL (3.2-5.2); ALKALINE PHOSPHATASE 352 U/L (35-104); ALT/SGPT 16 U/L (7.0-40); AST/SGOT 27 U/L (<34); BILIRUBIN,TOTAL 0.2 MG/DL (0.3-1.2); BLOOD UREA NITROGEN 11 MG/DL (9-23); CARBON DIOXIDE LEVEL 26 MMOL/L (20-31); CHLORIDE LEVEL 105 MMOL/L (98-107); CREATININE FOR GFR 0.37 MG/DL (0.55-1.30); GLOMERULAR FILTRATION RATE > 60.0 (>51); GLUCOSE, FASTING 128 MG/DL (60-100); SODIUM LEVEL 128 MMOL/L (136-145); TOTAL PROTEIN 7.2 G/DL (5.7-8.2)
[2024-10-31 18:19] LABS: POTASSIUM SERUM > 10.0 MMOL/L (3.5-5.1)
== END ==
LOC: M LAB REF 16:45
PROVIDERS: ATTEND Surgery Vascular Surgery
DX: Z48.815 Encounter for surgical aftercare following surgery on the digestive system (principal)

== ENCOUNTER → 2025-01-07 | Outpatient (CLI) | payer MEDICARE, MEDICAID ==
[~2025-01-07] MED LIST changes: -BAYE325T12 PO; +BAYE325T2 PO
== END ==
LOC: M RAD 09:54
PROVIDERS: ATTEND Physician Assistant
DX: I65.23 Occlusion and stenosis of bilateral carotid arteries (principal); Z95.828 Presence of other vascular implants and grafts; I70.201 Unspecified atherosclerosis of native arteries of extremities, right leg

== ENCOUNTER → 2025-07-08 | Outpatient (CLI) | payer MEDICARE, MEDICAID ==
[~2025-07-08] MED LIST changes: +DIVA-41; -DIVA500T94; +SENN-225 PO; -SENO8.6T5 PO
== END ==
LOC: M RAD 11:55
PROVIDERS: ATTEND Physician Assistant
DX: I65.22 Occlusion and stenosis of left carotid artery (principal)

== ENCOUNTER → 2025-08-02 | Outpatient (CLI) | payer MEDICARE, MEDICAID ==
[2025-08-02 11:33] LABS: CREATININE FOR GFR 0.45 MG/DL (0.55-1.30); GLOMERULAR FILTRATION RATE > 90.0 (>45)
== END ==
LOC: M LAB 09:41
PROVIDERS: ATTEND Physician Assistant
DX: I65.22 Occlusion and stenosis of left carotid artery (principal)

== ENCOUNTER → 2025-08-09 | Outpatient (CLI) | payer MEDICARE, MEDICAID ==
[~2025-08-09] MED LIST changes: +ISOVUE-370 76% 100 ML VIAL As Ordered ONE
== END ==
LOC: M RAD 13:00
PROVIDERS: ATTEND Physician Assistant
DX: I65.22 Occlusion and stenosis of left carotid artery (principal); J43.9 Emphysema, unspecified
CPT/HCPCS: 70496; 70498; Q9967

== ENCOUNTER → 2025-08-13 | Outpatient (CLI) | payer MEDICARE, MEDICAID ==
[~2025-08-13] MED LIST changes: -ISOVUE-370 76% 100 ML VIAL As Ordered ONE
[2025-08-13 10:31] LABS: ALT/SGPT 22.0 U/L (7.0-40); AST/SGOT 37.0 U/L (<34); CALCIUM LEVEL 9.7 MG/DL (8.3-10.6); CHOLESTEROL LEVEL 121.0 MG/DL (<200); CHOLESTEROL RISK RATIO 3.75 (<5); LDL CHOLESTEROL 58.6 MG/DL (<100); NON-HDL-C 88.8 MG/DL; TRIGLYCERIDES LEVEL 151.0 MG/DL (<150)
== END ==
LOC: M RAD 08:10
PROVIDERS: ATTEND Physician Assistant
DX: R94.5 Abnormal results of liver function studies (principal); I65.21 Occlusion and stenosis of right carotid artery; E83.52 Hypercalcemia; K80.20 Calculus of gallbladder without cholecystitis without obstruction

== ENCOUNTER 2025-08-22 22:38 | Emergency (ER) | payer MEDICARE, MEDICAID ==
[~2025-08-22] VITALS: Ht 157.5 cm; Wt 41.2 kg
[2025-08-23 00:09] LABS: INR 0.91
[2025-08-23 00:12] LABS: ALT/SGPT 18 U/L (7.0-40); AST/SGOT 22 U/L (<34); CALCIUM LEVEL 9.0 MG/DL (8.3-10.6); CARBON DIOXIDE LEVEL 31 MMOL/L (20-31); CHLORIDE LEVEL 105 MMOL/L (98-107); CREATININE FOR GFR 0.41 MG/DL (0.55-1.30); GLOMERULAR FILTRATION RATE > 90.0 (>45); POTASSIUM SERUM 3.0 MMOL/L (3.5-5.1); SODIUM LEVEL 143 MMOL/L (136-145)
[2025-08-23 00:16] LABS: BASO # 0.0 10^3/uL (0.0-0.2); BASO % 0.2 % (0.0-1.0); EOS # 0.0 10^3/uL (0.0-0.5); EOS % 0.2 % (0.0-3.0); LYMPH # 3.2 10^3/uL (1.5-5.0); LYMPH % 29.6 % (24.0-44.0); MONO # 1.2 10^3/uL (0.0-0.8); MONO % 10.9 % (2.0-8.0); NEUTROPHILS # 6.3 10^3/uL (1.5-8.5); NEUTROPHILS % 58.0 % (36.0-66.0); PLATELET COUNT, AUTOMATED 290 10^3/uL (150-450)
[2025-08-23] MEDS ORDERED: ISOVUE-370 76% 100 ML VIAL As Ordered ONE (01:08)
[2025-08-23] MEDS: NS (Normal Saline) 0.9% 1,000 ML IV ONE (02:57)
[2025-08-23 03:09] LABS: PLATELET COUNT, AUTOMATED 240 10^3/uL (150-450)
[2025-08-23 03:45] VITALS: BP 98/56; TEMP 97.8; O2SAT 99
[2025-08-23] MEDS ORDERED: POTA1TAB23 PO (04:19)
== END 2025-08-23 04:27 | disposition home or self-care (01) ==
LOC: M ED 22:38
DX: R04.2 Hemoptysis (principal); E87.5 Hyperkalemia; E78.5 Hyperlipidemia, unspecified; K21.9 Gastro-esophageal reflux disease without esophagitis; G40.909 Epilepsy, unspecified, not intractable, without status epilepticus; F17.210 Nicotine dependence, cigarettes, uncomplicated; Z79.1 Long term (current) use of non-steroidal anti-inflammatories (NSAID); Z79.2 Long term (current) use of antibiotics; Z79.899 Other long term (current) drug therapy
CPT/HCPCS: 71046; 71275; 80053; 83690; 85025; 85027; 85610; 85730; 86850; 86900; 86901; 96360; 99284; Q9967

== ENCOUNTER 2025-08-29 19:04 | Emergency (ER) | payer MEDICARE, MEDICAID ==
[~2025-08-29 19:04] MED LIST changes: +POTA1TAB23 PO
[2025-08-29] MEDS ORDERED: ISOVUE-370 76% 100 ML VIAL As Ordered ONE (19:34)
[2025-08-29 19:38] LABS: BASO # 0.0 10^3/uL (0.0-0.2); BASO % 0.1 % (0.0-1.0); EOS # 0.1 10^3/uL (0.0-0.5); EOS % 0.5 % (0.0-3.0); LYMPH # 4.3 10^3/uL (1.5-5.0); LYMPH % 29.8 % (24.0-44.0); MONO # 2.0 10^3/uL (0.0-0.8); MONO % 14.0 % (2.0-8.0); NEUTROPHILS # 8.0 10^3/uL (1.5-8.5); NEUTROPHILS % 55.1 % (36.0-66.0); PLATELET COUNT, AUTOMATED 400 10^3/uL (150-450)
[2025-08-29 19:52] LABS: INR 0.97
[2025-08-29] MEDS: NS (Normal Saline) 0.9% 1,800 ML in IV 1 EA IV ONE (19:54)
[2025-08-29 20:09] LABS: CALCIUM LEVEL 8.7 MG/DL (8.3-10.6); CARBON DIOXIDE LEVEL 27 MMOL/L (20-31); CHLORIDE LEVEL 108 MMOL/L (98-107); CK-MB VALUE MASS < 1.0 NG/ML (<3.6); CPK CREATINE PHOSPHOKINASE 22 U/L (34-145); CREATININE FOR GFR 0.49 MG/DL (0.55-1.30); GLOMERULAR FILTRATION RATE > 90.0 (>45); POTASSIUM SERUM 4.0 MMOL/L (3.5-5.1); SODIUM LEVEL 142 MMOL/L (136-145)
[2025-08-29] MEDS: NOREPINEPHRINE 4MG IN D5 250ML 4 MG in IV 1 EA IV SCH (21:06)
[2025-08-29 21:22] LABS: CK-MB VALUE MASS < 1.0 NG/ML (<3.6)
[2025-08-29 21:24] LABS: ALT/SGPT 14 U/L (7.0-40); AST/SGOT 20 U/L (<34)
[2025-08-29 21:31] LABS: CPK CREATINE PHOSPHOKINASE 23 U/L (34-145)
[2025-08-29 22:10] VITALS: TEMP 97.2
[2025-08-29] MEDS: NS 500 ML IV ONE (22:57)
[2025-08-29] MEDS ORDERED: HEPARIN SOD 5000 UNITS/ML 1 ML VIAL/SYRINGE IV PRN (23:35)
[2025-08-29] MEDS: HEPARIN DRIP 25,000 UNITS in IV 1 EA IV SCH (23:50)
[2025-08-30 08:04] LABS: PLATELET COUNT, AUTOMATED 432 10^3/uL (150-450)
[2025-08-30 08:22] VITALS: BP 96/51; TEMP 98.3; O2SAT 98
== END 2025-08-30 08:25 | disposition short-term general hospital (02) ==
LOC: M ED 19:04
DX: I21.4 Non-ST elevation (NSTEMI) myocardial infarction (principal); G45.9 Transient cerebral ischemic attack, unspecified; I26.99 Other pulmonary embolism without acute cor pulmonale; K21.9 Gastro-esophageal reflux disease without esophagitis; E78.5 Hyperlipidemia, unspecified; E78.00 Pure hypercholesterolemia, unspecified; F32.A Depression, unspecified; F17.210 Nicotine dependence, cigarettes, uncomplicated; F10.10 Alcohol abuse, uncomplicated; R94.31 Abnormal electrocardiogram [ECG] [EKG]; Z86.73 Personal history of transient ischemic attack (TIA), and cerebral infarction without residual deficits; Z79.1 Long term (current) use of non-steroidal anti-inflammatories (NSAID); Z79.2 Long term (current) use of antibiotics; Z79.899 Other long term (current) drug therapy
CPT/HCPCS: 36415; 70450; 70496; 70498; 71045; 80047; 80048; 80076; 82140; 82550; 82553; 83605; 83690; 84145; 84484; 85025; 85027; 85610; 85730; 87486; 87581; 87633; 87798; 93005; 93041; 94760; 96361; 96365; 96366; 96367; 99285; Q9967